=== PATIENT | male | born 1975 | race Caucasian/White ===

== ENCOUNTER 2017-03-06 11:35 | Emergency (ER) | payer SELFPAY ==
[2017-03-06 11:38] VITALS: BP 140/99
== END 2017-03-06 13:18 | disposition home or self-care (01) ==
LOC: ED 11:35
DX: L60.0 Ingrowing nail (principal)
CPT/HCPCS: J2001

== ENCOUNTER 2017-07-18 15:15 | Emergency (ER) | payer SELFPAY ==
[~2017-07-18] VITALS: Ht 167.6 cm; Wt 76.2 kg
[2017-07-18 15:22] VITALS: BP 107/70; Ht 167.6 cm; Wt 76.2 kg
== END 2017-07-18 17:24 | disposition home or self-care (01) ==
LOC: ED 15:15
DX: M25.512 Pain in left shoulder (principal)
CPT/HCPCS: J1885